=== PATIENT | male | born 1995 | race African-American/Black ===

== ENCOUNTER 2021-05-19 15:24 | Emergency (ER) | payer MEDICAID ==
[~2021-05-19] VITALS: Ht 190.5 cm; Wt 91.0 kg
[2021-05-19 15:33] VITALS: BP 109/57
== END 2021-05-19 20:03 | disposition home or self-care (01) ==
LOC: ER 15:24
DX: S62.602A Fracture of unspecified phalanx of right middle finger, initial encounter for closed fracture (principal); X58.XXXA Exposure to other specified factors, initial encounter; Y93.89 Activity, other specified; Y92.89 Other specified places as the place of occurrence of the external cause; Y99.8 Other external cause status
CPT/HCPCS: 29130; 73140; 99283